=== PATIENT | female | born 1965 | race Caucasian/White ===

== ENCOUNTER 2019-07-08 21:14 | Emergency (ER) | payer MEDICAID ==
[~2019-07-08] VITALS: Ht 170.2 cm; Wt 90.9 kg
[~2019-07-08 21:14] MED LIST: ANUSOL 1%-12.5%1 OIN TP; ATIVAN 0.50.5 MG/TAB PO; ATIVAN2 MG PO; BENADRYL 50MG C50 MG PO; CALTRATE-600 W600 MG PO; CARAFATE 1GM1 G PO; CELEXA; CITALOPRAM HYDR20 MG PO; CLARITIN; CYCLOBENZAPRINE10 MG PO; CYMBALTA 60MG60 MG PO; DIFLUCAN PO; DIOVAN; DIOVAN PO; DIOVAN160 MG PO; ELAVIL100 MG PO; ELAVIL50 MG PO; ELMIRON 10100 MG/CA1 PO; ENJUVIA; FEMIRON20 MG PO; FISH OIL CONC1000 MG PO; FISH OIL1 IU PO; FLEXERIL; FLEXERIL 1010 MG/TAB PO; FOLIC ACID; FOLIC ACID PO; GABAPENTIN; HYTRIN 5MG C5 MG/CAP PO; IBUPROFEN; IBUPROFEN200 M1 PO; IMITREX100 MG PO; IMITREX25 MG PO; IRON; Iron; KEPPRA 500MG500 MG PO; KEPPRA750 MG PO; KLONOPIN 0.5MG0.5 MG PO; KLOR-CON M2020 MEQ PO; LORATADINE5 MG/5 ML PO; LORTAB 5/500 501 TAB PO; LYRICA; METHOTREXA50 MG/2 ML IJ; MS CONTIN 330 MG/TAB PO; MVI; NEPHRO-VITE1 TA1 PO; NEURONTIN300 MG/CAP PO; NORCO 325 MG-51 TAB PO; PERCOCET 325 MG1 TA2 PO; PERCOCET 5/321 UDTAB PO; PHENERGAN W/CO120 ML PO; PHENOBARBITAL; PHENOBARBITAL100 M1 PO; PHENOBARBITAL64.8 MG PO; PLAQUENIL; PLAQUENIL PO; PREDNISONE20 MG PO; PREGABALIN; PREMPRO 0.625/21 TAB PO; PREVACID 30MG30 MG PO; PRILOSEC 20MG20 MG PO; PROCTOSOL-HC; RANITIDINE HYD150 MG PO; ROBAXIN500 MG PO; TOPAMAX 100MG100 M1 PO; TOPAMAX 25MG25 M1; TYLENOL 500MG500 MG PO; ULTRAM 50MG TAB50 MG PO; UNABLE; VICODIN 5/5001 UDTAB PO; VIMPAT PO; XALATAN EYE DROPS OU; ZANTAC; ZANTAC 150150 MG PO; [UNRECOGNIZED DRUG - OTHER]; [UNRECOGNIZED DRUG - OTHER] PO; diavan
[2019-07-08 21:16] VITALS: TEMP 98.6
[2019-07-08] MEDS ORDERED: PHENOBARBITAL32.4 MG PO ×2 (21:34→22:16)
[2019-07-08] MEDS ORDERED: MORPHINE 1515 MG/TAB PO (21:35)
[2019-07-08] MEDS ORDERED: SEROQUEL 200MG200 MG PO (21:35)
[2019-07-08] MEDS ORDERED: NAPROSYN500 MG PO (21:35)
[2019-07-08] MEDS ORDERED: LEVOXYL0.15 MG PO (21:35)
[2019-07-08] MEDS ORDERED: XALATAN EYE DROPS OD (21:36)
[2019-07-08] MEDS ORDERED: TENORMIN 5050 MG/TAB PO (21:36)
[2019-07-08] MEDS ORDERED: TRIAMCINOLONE A15 GM TP (21:36)
[2019-07-08 21:50] LABS: BASO # 0.1 (0.0-0.2); BASO % 0.6 % (0.0-2.0); GRAN # 5.3 (1.4-6.5); GRAN % 62.3 % (42.2-75.2); HEMOGLOBIN 12.4 g/dl (12.5-16.0); LYMPH # 2.4 (1.2-3.4); LYMPH % 27.9 % (20.0-51.0); MEAN CELL VOLUME 89 fl (80.0-100.0); MEAN CORPUSCULAR HEMOGLOBIN 31 pg (27.0-31.0); MEAN CORPUSCULAR HGB CONC 34 g/dl (33.0-37.0); MONO # 0.8 (0.1-0.6); PLATELET COUNT 206 K/mm3 (130-400); RED BLOOD COUNT 4.07 M/mm3 (4.10-5.30); REDCELL DISTRIBUTION WIDTH-CV 15.7 % (11.5-14.5)
[2019-07-08 21:51] LABS: HEMATOCRIT 36.3 % (37.0-47.0)
[2019-07-08 21:59] LABS: ALBUMIN 3.7 gm/dL (3.5-5.0); BILIRUBIN,TOTAL 0.3 mg/dL (0.0-1.0); CALCIUM 8.9 mg/dL (8.4-10.2); CREATININE, serum 0.63 (0.52-1.25); POTASSIUM 4.3 mmol/L (3.4-5.0); TOTAL PROTEIN 6.8 gm/dL (6.4-8.2)
[2019-07-08 22:16] LABS: PROLACTIN 9.3 ng/mL (3.0-18.6)
[2019-07-08 23:20] VITALS: BP 121/73; PULSE 7
== END 2019-07-08 23:34 | disposition home or self-care (01) ==
LOC: COL.ER 21:14
PROVIDERS: Emergency Medicine
DX: G40.909 Epilepsy, unspecified, not intractable, without status epilepticus (principal)
CPT/HCPCS: J2060; J2560

== ENCOUNTER 2019-07-19 15:00 | Emergency (ER) | payer MEDICAID ==
[~2019-07-19] VITALS: Ht 170.2 cm; Wt 79.5 kg
[~2019-07-19 15:00] MED LIST changes: +LEVOXYL0.15 MG PO; +MORPHINE 1515 MG/TAB PO; +NAPROSYN500 MG PO; +PHENOBARBITAL32.4 MG PO; +SEROQUEL 200MG200 MG PO; +TENORMIN 5050 MG/TAB PO; +TRIAMCINOLONE A15 GM TP; +XALATAN EYE DROPS OD
[2019-07-19 15:01] VITALS: TEMP 98.7
[2019-07-19 15:25] LABS: BASO % 0.3 % (0.0-2.0); GRAN # 4.7 (1.4-6.5); GRAN % 78.3 % (42.2-75.2); HEMATOCRIT 40.4 % (37.0-47.0); HEMOGLOBIN 13.5 g/dl (12.5-16.0); MEAN CELL VOLUME 91 fl (80.0-100.0); MEAN CORPUSCULAR HEMOGLOBIN 30 pg (27.0-31.0); MEAN CORPUSCULAR HGB CONC 33 g/dl (33.0-37.0); MEAN PLATELET VOLUME 9.1 fl (7.4-10.4); MONO # 0.2 (0.1-0.6); MONO % 3.9 % (1.7-9.3); PLATELET COUNT 233 K/mm3 (130-400); RED BLOOD COUNT 4.45 M/mm3 (4.10-5.30); REDCELL DISTRIBUTION WIDTH-CV 15.4 % (11.5-14.5)
[2019-07-19 15:31] LABS: ALANINE AMINOTRANSFERASE 11 U/L (9-52); ALBUMIN 4.4 gm/dL (3.5-5.0); ALKALINE PHOSPHATASE 109 U/L (50-136); ANION GAP 14 mmol/L (7-16); AST,SGOT 28 U/L (15-37); BILIRUBIN,TOTAL 0.3 mg/dL (0.0-1.0); BLOOD UREA NITROGEN 8 mg/dL (7-17); CALCIUM 9.4 mg/dL (8.4-10.2); CARBON DIOXIDE 24 mmol/L (22-30); CHLORIDE 96 mmol/L (98-107); GLUCOSE 122 mg/dL (74-106); SODIUM 134 mmol/L (137-145); TOTAL PROTEIN 7.6 gm/dL (6.4-8.2)
[2019-07-19 15:33] LABS: ALCOHOL(ethanol),MEDICAL < 10 mg/dL
[2019-07-19 15:44] LABS: COLLECTION METHOD CLEAN CATCH
[2019-07-19 15:47] LABS: PROLACTIN 13.8 ng/mL (3.0-18.6)
[2019-07-19 15:57] LABS: MUCOUS Present /lpf; PH 7 (5-8); SQUAMOUS EPITHELIAL 0-2 /hpf; URINE APPEARANCE Clear; URINE BACTERIA Moderate /hpf; URINE BILIRUBIN Negative (NEGATIVE); URINE BLOOD 1+ (NEGATIVE); URINE COLOR Straw; URINE GLUCOSE Negative (NEGATIVE); URINE KETONE Negative (NEGATIVE); URINE LEUKOCYTE ESTERASE 2+ (NEGATIVE); URINE NITRATE Negative (NEGATIVE); URINE PROTEIN(semi-quant) Negative (NEGATIVE); URINE UROBILINOGEN Negative (NEGATIVE)
[2019-07-19] MEDS ORDERED: CEPHALEXIN500 M1 PO (19:36)
[2019-07-19 21:54] VITALS: BP 146/93; PULSE 97
[2019-07-20] MEDS ORDERED: SYNTHROID 0.10.15 MG PO (11:54)
[2019-07-20] MEDS ORDERED: CEPHALEXIN500 M1 PO (11:55)
== END 2019-07-19 19:50 | disposition home or self-care (01) ==
LOC: COL.ER 15:00
PROVIDERS: Emergency Medicine
DX: G40.909 Epilepsy, unspecified, not intractable, without status epilepticus (principal); N39.0 Urinary tract infection, site not specified
CPT/HCPCS: A4216; J0696; J2060; J2560; J7030

== ENCOUNTER 2019-07-27 18:01 | Emergency (ER) | payer MEDICAID ==
[~2019-07-27] VITALS: Ht 170.2 cm; Wt 92.7 kg
[~2019-07-27 18:01] MED LIST changes: +CEPHALEXIN500 M1 PO; +SYNTHROID 0.10.15 MG PO
[2019-07-27 18:04] VITALS: TEMP 98.4
[2019-07-27 18:26] LABS: BASO % 0.1 % (0.0-2.0); GRAN # 5.7 (1.4-6.5); HEMATOCRIT 34.7 % (37.0-47.0); HEMOGLOBIN 11.7 g/dl (12.5-16.0); LYMPH # 1.6 (1.2-3.4); LYMPH % 20.5 % (20.0-51.0); MEAN CELL VOLUME 91 fl (80.0-100.0); MEAN CORPUSCULAR HEMOGLOBIN 31 pg (27.0-31.0); MEAN CORPUSCULAR HGB CONC 34 g/dl (33.0-37.0); MEAN PLATELET VOLUME 8.8 fl (7.4-10.4); MONO # 0.6 (0.1-0.6); PLATELET COUNT 234 K/mm3 (130-400); RED BLOOD COUNT 3.82 M/mm3 (4.10-5.30); REDCELL DISTRIBUTION WIDTH-CV 15.6 % (11.5-14.5)
[2019-07-27 18:35] LABS: ALBUMIN 3.8 gm/dL (3.5-5.0); BILIRUBIN,TOTAL 0.3 mg/dL (0.0-1.0); CALCIUM 8.8 mg/dL (8.4-10.2); CREATININE, serum 0.55 (0.52-1.25); POTASSIUM 4.4 mmol/L (3.4-5.0); TOTAL PROTEIN 6.6 gm/dL (6.4-8.2)
[2019-07-27 18:44] LABS: COLLECTION METHOD CLEAN CATCH
[2019-07-27 18:51] LABS: PROLACTIN 21.1 ng/mL (3.0-18.6)
[2019-07-27 18:53] LABS: PH 7 (5-8); SQUAMOUS EPITHELIAL 0-2 /hpf; URINE APPEARANCE Clear; URINE BACTERIA Occasional /hpf; URINE BILIRUBIN Negative (NEGATIVE); URINE BLOOD Negative (NEGATIVE); URINE COLOR Straw; URINE GLUCOSE Negative (NEGATIVE); URINE KETONE Negative (NEGATIVE); URINE LEUKOCYTE ESTERASE Negative (NEGATIVE); URINE NITRATE Negative (NEGATIVE); URINE PROTEIN(semi-quant) Negative (NEGATIVE); URINE RBC 0-2 /hpf; URINE UROBILINOGEN Negative (NEGATIVE)
[2019-07-27 21:05] VITALS: BP 154/119; PULSE 70
== END 2019-07-27 21:08 | disposition home or self-care (01) ==
LOC: COL.ER 18:01
PROVIDERS: Emergency Medicine
DX: G40.909 Epilepsy, unspecified, not intractable, without status epilepticus (principal); E03.9 Hypothyroidism, unspecified; I10 Essential (primary) hypertension; F17.210 Nicotine dependence, cigarettes, uncomplicated; Z90.710 Acquired absence of both cervix and uterus; Z90.49 Acquired absence of other specified parts of digestive tract
CPT/HCPCS: J2060; J7030

== ENCOUNTER 2019-08-31 11:00 | Outpatient (RCR) | payer MEDICAID | END 2019-09-05 13:23 | disposition home or self-care (01) | LOC: WSPT 11:00 | DX: M25.562 Pain in left knee (principal); Z98.890 Other specified postprocedural states ==

== ENCOUNTER 2019-10-02 15:40 | Emergency (ER) | payer MEDICAID ==
[~2019-10-02] VITALS: Ht 170.2 cm; Wt 90.9 kg
[2019-10-02 15:41] VITALS: BP 148/111; TEMP 98.5
[2019-10-02] MEDS ORDERED: SEROQUEL XR200 MG PO (16:07)
[2019-10-02] MEDS ORDERED: KLOR-CON SPRIN10 MEQ PO (16:07)
[2019-10-02] MEDS ORDERED: BRIVIACT100 MG PO (16:08)
[2019-10-02 16:25] LABS: COLLECTION METHOD CLEAN CATCH
[2019-10-02 16:26] LABS: BASO # 0.1 (0.0-0.2); BASO % 0.5 % (0.0-2.0); GRAN # 7.4 (1.4-6.5); GRAN % 70.8 % (42.2-75.2); HEMATOCRIT 37.9 % (37.0-47.0); HEMOGLOBIN 12.5 g/dl (12.5-16.0); LYMPH # 2.2 (1.2-3.4); LYMPH % 21.4 % (20.0-51.0); MEAN CELL VOLUME 94 fl (80.0-100.0); MEAN CORPUSCULAR HEMOGLOBIN 31 pg (27.0-31.0); MEAN CORPUSCULAR HGB CONC 33 g/dl (33.0-37.0); MONO # 0.7 (0.1-0.6); MONO % 6.9 % (1.7-9.3); PLATELET COUNT 217 K/mm3 (130-400); RED BLOOD COUNT 4.04 M/mm3 (4.10-5.30); REDCELL DISTRIBUTION WIDTH-CV 14.5 % (11.5-14.5)
[2019-10-02 16:39] LABS: PH 7 (5-8); SQUAMOUS EPITHELIAL 0-2 /hpf; URINE APPEARANCE Clear; URINE BACTERIA None Seen /hpf; URINE BILIRUBIN Negative (NEGATIVE); URINE BLOOD Negative (NEGATIVE); URINE COLOR Straw; URINE GLUCOSE Negative (NEGATIVE); URINE KETONE Negative (NEGATIVE); URINE LEUKOCYTE ESTERASE Negative (NEGATIVE); URINE NITRATE Negative (NEGATIVE); URINE PROTEIN(semi-quant) Negative (NEGATIVE); URINE RBC 0-2 /hpf; URINE UROBILINOGEN Negative (NEGATIVE)
[2019-10-02 16:50] LABS: ALANINE AMINOTRANSFERASE 15 U/L (9-52); ALBUMIN 3.6 gm/dL (3.5-5.0); ALKALINE PHOSPHATASE 85 U/L (50-136); ANION GAP 6 mmol/L (7-16); AST,SGOT 19 U/L (15-37); BILIRUBIN,TOTAL 0.2 mg/dL (0.0-1.0); BLOOD UREA NITROGEN 10 mg/dL (7-17); C-REACTIVE PROTEIN 0.8 mg/dL (0.0-0.9); CALCIUM 8.8 mg/dL (8.4-10.2); CARBON DIOXIDE 24 mmol/L (22-30); CHLORIDE 102 mmol/L (98-107); CREATININE, serum 0.57 (0.52-1.25); GLUCOSE 98 mg/dL (74-106); POTASSIUM 4.5 mmol/L (3.4-5.0); SODIUM 132 mmol/L (137-145); TOTAL PROTEIN 6.5 gm/dL (6.4-8.2)
[2019-10-02 17:01] LABS: TROPONIN-I < 0.012 ng/mL (0.000-0.035)
[2019-10-02] MEDS ORDERED: ATIVAN 0.50.5 MG/TAB PO (17:50)
[2019-10-02 17:55] VITALS: PULSE 88
== END 2019-10-02 17:55 | disposition home or self-care (01) ==
LOC: COL.ER 15:40
PROVIDERS: Emergency Medicine
DX: G47.00 Insomnia, unspecified (principal); R53.1 Weakness; R25.8 Other abnormal involuntary movements; I10 Essential (primary) hypertension; F17.210 Nicotine dependence, cigarettes, uncomplicated
CPT/HCPCS: J2060; J7030

== ENCOUNTER 2019-10-29 21:37 | Emergency (ER) | payer MEDICAID ==
[~2019-10-29] VITALS: Ht 170.2 cm; Wt 86.4 kg
[~2019-10-29 21:37] MED LIST changes: +BRIVIACT100 MG PO; +KLOR-CON SPRIN10 MEQ PO; +SEROQUEL XR200 MG PO
[2019-10-29 22:13] LABS: BASO # 0.1 (0.0-0.2); BASO % 0.7 % (0.0-2.0); GRAN # 4.3 (1.4-6.5); GRAN % 59.5 % (42.2-75.2); HEMATOCRIT 38.6 % (37.0-47.0); HEMOGLOBIN 12.7 g/dl (12.5-16.0); LYMPH # 2.2 (1.2-3.4); LYMPH % 30.3 % (20.0-51.0); MEAN CELL VOLUME 94 fl (80.0-100.0); MEAN CORPUSCULAR HEMOGLOBIN 31 pg (27.0-31.0); MEAN CORPUSCULAR HGB CONC 33 g/dl (33.0-37.0); MEAN PLATELET VOLUME 8.9 fl (7.4-10.4); MONO # 0.7 (0.1-0.6); MONO % 9.2 % (1.7-9.3); PLATELET COUNT 253 K/mm3 (130-400); RED BLOOD COUNT 4.13 M/mm3 (4.10-5.30); REDCELL DISTRIBUTION WIDTH-CV 14.6 % (11.5-14.5)
[2019-10-29 22:26] LABS: ALBUMIN 3.9 gm/dL (3.5-5.0); BILIRUBIN,TOTAL 0.3 mg/dL (0.0-1.0); C-REACTIVE PROTEIN 0.9 mg/dL (0.0-0.9); CALCIUM 8.8 mg/dL (8.4-10.2); CREATININE, serum 0.62 (0.52-1.25); POTASSIUM 4.4 mmol/L (3.4-5.0); TOTAL PROTEIN 6.9 gm/dL (6.4-8.2)
[2019-10-29 22:40] LABS: PROLACTIN 16.3 ng/mL (3.0-18.6)
[2019-10-29 23:03] LABS: COLLECTION METHOD CLEAN CATCH
[2019-10-29 23:10] LABS: MUCOUS Present /lpf; PH 5 (5-8); URINE APPEARANCE Clear; URINE BACTERIA Rare /hpf; URINE BILIRUBIN Positive (NEGATIVE); URINE BLOOD Negative (NEGATIVE); URINE COLOR Yellow; URINE GLUCOSE Negative (NEGATIVE); URINE KETONE Negative (NEGATIVE); URINE LEUKOCYTE ESTERASE Trace (NEGATIVE); URINE NITRATE Negative (NEGATIVE); URINE PROTEIN(semi-quant) Negative (NEGATIVE); URINE RBC 0-2 /hpf
[2019-10-29] MEDS ORDERED: ATIVAN 0.50.5 MG/TAB PO (23:22)
[2019-10-30 00:10] VITALS: BP 129/77; PULSE 70; TEMP 98.8
== END 2019-10-30 00:10 | disposition home or self-care (01) ==
LOC: COL.ER 21:37
PROVIDERS: Emergency Medicine
DX: G40.909 Epilepsy, unspecified, not intractable, without status epilepticus (principal); I10 Essential (primary) hypertension; E03.9 Hypothyroidism, unspecified; Z90.710 Acquired absence of both cervix and uterus
CPT/HCPCS: J2060; J7030

== ENCOUNTER 2019-11-03 19:55 | Emergency (ER) | payer MEDICAID ==
[~2019-11-03] VITALS: Ht 170.2 cm; Wt 90.0 kg
[2019-11-03 20:19] VITALS: BP 132/68; TEMP 96.8
[2019-11-03 22:31] LABS: STREP SCREEN NEGATIVE
[2019-11-03] MEDS ORDERED: AMOXICILLIN 50500 MG PO (22:44)
[2019-11-03 23:00] VITALS: PULSE 80
== END 2019-11-03 23:00 | disposition home or self-care (01) ==
LOC: COL.ER 19:55
PROVIDERS: Physician Assistant
DX: R59.0 Localized enlarged lymph nodes (principal); G40.909 Epilepsy, unspecified, not intractable, without status epilepticus; M32.9 Systemic lupus erythematosus, unspecified; F17.210 Nicotine dependence, cigarettes, uncomplicated

== ENCOUNTER 2019-11-07 13:30 | Outpatient (RCR) | payer MEDICAID ==
[~2019-11-07 13:30] MED LIST changes: +AMOXICILLIN 50500 MG PO
== END 2019-12-11 16:56 | disposition home or self-care (01) ==
LOC: WSC 13:30
DX: Z96.652 Presence of left artificial knee joint (principal)

== ENCOUNTER 2019-11-29 09:49 | Emergency (ER) | payer MEDICAID ==
[2019-11-29 09:54] VITALS: TEMP 98.3
[2019-11-29 10:32] LABS: BASO % 0.7 % (0.0-2.0); GRAN # 3.8 (1.4-6.5); GRAN % 62.2 % (42.2-75.2); HEMATOCRIT 38.7 % (37.0-47.0); HEMOGLOBIN 12.6 g/dl (12.5-16.0); LYMPH # 1.7 (1.2-3.4); LYMPH % 27.5 % (20.0-51.0); MEAN CELL VOLUME 94 fl (80.0-100.0); MEAN CORPUSCULAR HEMOGLOBIN 31 pg (27.0-31.0); MEAN CORPUSCULAR HGB CONC 33 g/dl (33.0-37.0); MEAN PLATELET VOLUME 9.1 fl (7.4-10.4); MONO # 0.6 (0.1-0.6); MONO % 9.4 % (1.7-9.3); PLATELET COUNT 240 K/mm3 (130-400); RED BLOOD COUNT 4.11 M/mm3 (4.10-5.30); REDCELL DISTRIBUTION WIDTH-CV 14.6 % (11.5-14.5)
[2019-11-29 10:42] LABS: ALBUMIN 3.7 gm/dL (3.5-5.0); BILIRUBIN,TOTAL 0.3 mg/dL (0.0-1.0); CREATININE, serum 0.62 (0.52-1.25); POTASSIUM 4.8 mmol/L (3.4-5.0); TOTAL PROTEIN 6.9 gm/dL (6.4-8.2)
[2019-11-29 10:58] LABS: PROLACTIN 11.8 ng/mL (3.0-18.6)
[2019-11-29 11:02] LABS: COLLECTION METHOD CLEAN CATCH
[2019-11-29 11:33] LABS: PH 6 (5-8); SQUAMOUS EPITHELIAL 0-2 /hpf; URINE APPEARANCE Clear; URINE BACTERIA Rare /hpf; URINE BILIRUBIN Negative (NEGATIVE); URINE BLOOD Negative (NEGATIVE); URINE COLOR Yellow; URINE GLUCOSE Negative (NEGATIVE); URINE KETONE Negative (NEGATIVE); URINE LEUKOCYTE ESTERASE Negative (NEGATIVE); URINE NITRATE Negative (NEGATIVE); URINE PROTEIN(semi-quant) Negative (NEGATIVE); URINE RBC 0-2 /hpf; URINE UROBILINOGEN Negative (NEGATIVE)
[2019-11-29 12:32] VITALS: BP 141/78; PULSE 94
== END 2019-11-29 12:32 | disposition home or self-care (01) ==
LOC: COL.ER 09:49
PROVIDERS: Emergency Medicine
DX: G40.909 Epilepsy, unspecified, not intractable, without status epilepticus (principal); R51 Headache
CPT/HCPCS: J0780; J1885; J2060; J7040

== ENCOUNTER → 2019-12-13 | Outpatient (CLI) | payer MEDICAID | LOC: COL.RAD 09:25 | DX: R59.0 Localized enlarged lymph nodes (principal) ==

== ENCOUNTER 2020-01-21 14:16 | Emergency (ER) | payer MEDICAID ==
[~2020-01-21] VITALS: Ht 170.2 cm; Wt 90.5 kg
[2020-01-21] MEDS ORDERED: IMITREX100 MG PO (14:32)
[2020-01-21 16:53] LABS: BASO % 0.6 % (0.0-2.0); GRAN # 3.8 (1.4-6.5); GRAN % 58.9 % (42.2-75.2); HEMATOCRIT 39.6 % (37.0-47.0); HEMOGLOBIN 12.9 g/dl (12.5-16.0); LYMPH # 2.2 (1.2-3.4); LYMPH % 33.3 % (20.0-51.0); MEAN CELL VOLUME 92 fl (80.0-100.0); MEAN CORPUSCULAR HEMOGLOBIN 30 pg (27.0-31.0); MEAN CORPUSCULAR HGB CONC 33 g/dl (33.0-37.0); MEAN PLATELET VOLUME 9.1 fl (7.4-10.4); MONO # 0.5 (0.1-0.6); PLATELET COUNT 257 K/mm3 (130-400); RED BLOOD COUNT 4.32 M/mm3 (4.10-5.30); REDCELL DISTRIBUTION WIDTH-CV 14.5 % (11.5-14.5)
[2020-01-21 17:10] LABS: ALANINE AMINOTRANSFERASE 19 U/L (9-52); ALKALINE PHOSPHATASE 109 U/L (50-136); ANION GAP 8 mmol/L (7-16); AST,SGOT 19 U/L (15-37); BILIRUBIN,TOTAL 0.2 mg/dL (0.0-1.0); BLOOD UREA NITROGEN 10 mg/dL (7-17); CALCIUM 8.8 mg/dL (8.4-10.2); CARBON DIOXIDE 22 mmol/L (22-30); CHLORIDE 105 mmol/L (98-107); CREATININE, serum 0.54 (0.52-1.25); GLUCOSE 89 mg/dL (74-106); POTASSIUM 4.2 mmol/L (3.4-5.0); SODIUM 135 mmol/L (137-145); TOTAL PROTEIN 7.1 gm/dL (6.4-8.2)
[2020-01-21 17:23] LABS: PROLACTIN 7.1 ng/mL (3.0-18.6)
[2020-01-21 17:25] LABS: C-REACTIVE PROTEIN < 0.5 mg/dL (0.0-0.9)
[2020-01-21 17:27] VITALS: BP 132/78; PULSE 80; TEMP 98
== END 2020-01-21 17:45 | disposition home or self-care (01) ==
LOC: COL.ER 14:16
PROVIDERS: Emergency Medicine
DX: R56.9 Unspecified convulsions (principal); I10 Essential (primary) hypertension; E03.9 Hypothyroidism, unspecified; Z90.89 Acquired absence of other organs; Z90.710 Acquired absence of both cervix and uterus; Z86.69 Personal history of other diseases of the nervous system and sense organs
CPT/HCPCS: J2060; J7030

== ENCOUNTER 2020-01-29 17:22 | Emergency (ER) | payer MEDICAID ==
[~2020-01-29] VITALS: Ht 170.2 cm; Wt 90.3 kg
[2020-01-29 17:27] VITALS: BP 127/76; TEMP 98.6
[2020-01-29 18:46] LABS: BASO # 0.1 (0.0-0.2); BASO % 0.6 % (0.0-2.0); GRAN # 5.3 (1.4-6.5); GRAN % 61.7 % (42.2-75.2); HEMOGLOBIN 10.4 g/dl (12.5-16.0); LYMPH # 2.6 (1.2-3.4); LYMPH % 29.9 % (20.0-51.0); MEAN CELL VOLUME 95 fl (80.0-100.0); MEAN CORPUSCULAR HEMOGLOBIN 30 pg (27.0-31.0); MEAN CORPUSCULAR HGB CONC 32 g/dl (33.0-37.0); MONO # 0.6 (0.1-0.6); MONO % 7.3 % (1.7-9.3); PLATELET COUNT 308 K/mm3 (130-400); RED BLOOD COUNT 3.42 M/mm3 (4.10-5.30); REDCELL DISTRIBUTION WIDTH-CV 15.3 % (11.5-14.5)
[2020-01-29 18:47] LABS: HEMATOCRIT 32.6 % (37.0-47.0)
[2020-01-29 18:52] LABS: INR 0.9 (0.8-3.0)
[2020-01-29 18:55] LABS: PARTIAL THROMBOPLASTIN TIME 35.6 SECONDS (26.0-37.0)
[2020-01-29 18:59] LABS: BILIRUBIN,TOTAL 0.7 mg/dL (0.0-1.0); C-REACTIVE PROTEIN 2.4 mg/dL (0.0-0.9); CALCIUM 9.3 mg/dL (8.4-10.2); CREATININE, serum 0.55 (0.52-1.25); POTASSIUM 4.6 mmol/L (3.4-5.0); TOTAL PROTEIN 7.2 gm/dL (6.4-8.2)
[2020-01-29 20:10] VITALS: PULSE 100
== END 2020-01-29 20:10 | disposition home or self-care (01) ==
LOC: COL.ER 17:22
PROVIDERS: Emergency Medicine
DX: R58 Hemorrhage, not elsewhere classified (principal); F17.210 Nicotine dependence, cigarettes, uncomplicated; G40.909 Epilepsy, unspecified, not intractable, without status epilepticus; Z96.651 Presence of right artificial knee joint

== ENCOUNTER 2020-02-01 13:46 | Outpatient (RCR) | payer MEDICAID ==
[2020-04-04] MEDS ORDERED: MOBIC15 MG PO (14:24)
[2020-04-04] MEDS ORDERED: CEPHALEXIN500 M1 PO (16:49)
== END 2020-05-01 | disposition home or self-care (01) ==
LOC: WSPT
DX: M25.561 Pain in right knee (principal); Z96.651 Presence of right artificial knee joint

== ENCOUNTER 2020-04-04 13:52 | Emergency (ER) | payer MEDICAID ==
[~2020-04-04] VITALS: Ht 170.2 cm; Wt 81.8 kg
[2020-04-04 13:56] VITALS: TEMP 97.3
[2020-04-04] MEDS ORDERED: MOBIC15 MG PO (14:24)
[2020-04-04 14:28] LABS: BASO # 0.1 (0.0-0.2); BASO % 0.5 % (0.0-2.0); GRAN # 6.3 (1.4-6.5); GRAN % 68.4 % (42.2-75.2); HEMATOCRIT 42.8 % (37.0-47.0); HEMOGLOBIN 13.8 g/dl (12.5-16.0); LYMPH # 2.2 (1.2-3.4); LYMPH % 23.8 % (20.0-51.0); MEAN CELL VOLUME 87 fl (80.0-100.0); MEAN CORPUSCULAR HEMOGLOBIN 28 pg (27.0-31.0); MEAN CORPUSCULAR HGB CONC 32 g/dl (33.0-37.0); MEAN PLATELET VOLUME 9.1 fl (7.4-10.4); MONO # 0.7 (0.1-0.6); MONO % 7.1 % (1.7-9.3); PLATELET COUNT 349 K/mm3 (130-400); RED BLOOD COUNT 4.92 M/mm3 (4.10-5.30); REDCELL DISTRIBUTION WIDTH-CV 15.1 % (11.5-14.5)
[2020-04-04 14:43] LABS: ALANINE AMINOTRANSFERASE 17 U/L (4-34); ALBUMIN 4.5 gm/dL (3.5-5.0); ALKALINE PHOSPHATASE 122 U/L (50-136); ANION GAP 7 mmol/L (7-16); AST,SGOT 22 U/L (15-37); BILIRUBIN,TOTAL 0.3 mg/dL (0.0-1.0); BLOOD UREA NITROGEN 11 mg/dL (7-17); CALCIUM 9.8 mg/dL (8.4-10.2); CARBON DIOXIDE 26 mmol/L (22-30); CHLORIDE 98 mmol/L (98-107); CREATININE, serum 0.62 (0.52-1.25); GLUCOSE 102 mg/dL (74-106); POTASSIUM 4.4 mmol/L (3.4-5.0); SODIUM 131 mmol/L (137-145); TOTAL PROTEIN 7.9 gm/dL (6.4-8.2)
[2020-04-04 14:55] LABS: COLLECTION METHOD CLEAN CATCH
[2020-04-04 14:57] LABS: PROLACTIN 13.3 ng/mL (3.0-18.6)
[2020-04-04 15:01] LABS: TROPONIN-I < 0.012 ng/mL (0.000-0.035)
[2020-04-04 15:03] LABS: MUCOUS Present /lpf; PH 7 (5-8); SQUAMOUS EPITHELIAL 0-2 /hpf; URINE APPEARANCE Clear; URINE BACTERIA Occasional /hpf; URINE BILIRUBIN Negative (NEGATIVE); URINE BLOOD Negative (NEGATIVE); URINE COLOR Straw; URINE GLUCOSE Negative (NEGATIVE); URINE KETONE Negative (NEGATIVE); URINE LEUKOCYTE ESTERASE 1+ (NEGATIVE); URINE NITRATE Negative (NEGATIVE); URINE PROTEIN(semi-quant) Negative (NEGATIVE); URINE RBC 0-2 /hpf; URINE UROBILINOGEN Negative (NEGATIVE)
[2020-04-04] MEDS ORDERED: CEPHALEXIN500 M1 PO (16:49)
[2020-04-04 18:11] VITALS: BP 154/88; PULSE 81
== END 2020-04-04 18:10 | disposition home or self-care (01) ==
LOC: COL.ER 13:52
PROVIDERS: Emergency Medicine
DX: G40.909 Epilepsy, unspecified, not intractable, without status epilepticus (principal); R07.89 Other chest pain; N39.0 Urinary tract infection, site not specified; F17.210 Nicotine dependence, cigarettes, uncomplicated
CPT/HCPCS: J2060; J7030

== ENCOUNTER 2020-05-20 14:34 | Emergency (ER) | payer MEDICAID ==
[~2020-05-20] VITALS: Ht 170.2 cm; Wt 85.5 kg
[~2020-05-20 14:34] MED LIST changes: +MOBIC15 MG PO
[2020-05-20 14:39] VITALS: BP 153/83; TEMP 98.3
[2020-05-20] MEDS ORDERED: NORCO 325 MG-51 TAB PO (15:15)
[2020-05-20 15:26] LABS: MEAN CELL VOLUME 84 fl (80.0-100.0); MEAN CORPUSCULAR HEMOGLOBIN 28 pg (27.0-31.0); MEAN CORPUSCULAR HGB CONC 33 g/dl (33.0-37.0); MEAN PLATELET VOLUME 9.3 fl (7.4-10.4); PLATELET COUNT 252 K/mm3 (130-400); RED BLOOD COUNT 4.36 M/mm3 (4.10-5.30); REDCELL DISTRIBUTION WIDTH-CV 16.3 % (11.5-14.5)
[2020-05-20 15:28] LABS: HEMATOCRIT 36.4 % (37.0-47.0)
[2020-05-20 15:31] LABS: PROTHROMBIN TIME 11.4 SECONDS (9.7-12.8)
[2020-05-20 15:52] VITALS: PULSE 90
== END 2020-05-20 15:52 | disposition home or self-care (01) ==
LOC: COL.ER 14:34
PROVIDERS: Physician Assistant
DX: S70.12XA Contusion of left thigh, initial encounter (principal); G40.909 Epilepsy, unspecified, not intractable, without status epilepticus; W22.8XXA Striking against or struck by other objects, initial encounter; Y92.000 Kitchen of unspecified non-institutional (private) residence as the place of occurrence of the external cause

== ENCOUNTER 2020-06-15 15:38 | Emergency (ER) | payer MEDICAID ==
[~2020-06-15] VITALS: Ht 170.2 cm; Wt 83.6 kg
[2020-06-15 15:39] VITALS: TEMP 98.7
[2020-06-15 16:19] LABS: COLLECTION METHOD CLEAN CATCH
[2020-06-15 16:22] LABS: HEMATOCRIT 38.6 % (37.0-47.0); HEMOGLOBIN 12.5 g/dl (12.5-16.0); MEAN CELL VOLUME 85 fl (80.0-100.0); MEAN CORPUSCULAR HEMOGLOBIN 28 pg (27.0-31.0); MEAN CORPUSCULAR HGB CONC 32 g/dl (33.0-37.0); MEAN PLATELET VOLUME 8.8 fl (7.4-10.4); PLATELET COUNT 262 K/mm3 (130-400); RED BLOOD COUNT 4.54 M/mm3 (4.10-5.30); REDCELL DISTRIBUTION WIDTH-CV 17.9 % (11.5-14.5)
[2020-06-15 16:26] LABS: PH 7 (5-8); SQUAMOUS EPITHELIAL 0-2 /hpf; URINE APPEARANCE Clear; URINE BACTERIA None Seen /hpf; URINE BILIRUBIN Negative (NEGATIVE); URINE BLOOD Negative (NEGATIVE); URINE COLOR Straw; URINE GLUCOSE Negative (NEGATIVE); URINE KETONE Negative (NEGATIVE); URINE LEUKOCYTE ESTERASE Negative (NEGATIVE); URINE NITRATE Negative (NEGATIVE); URINE PROTEIN(semi-quant) Negative (NEGATIVE); URINE RBC 0-2 /hpf; URINE UROBILINOGEN Negative (NEGATIVE)
[2020-06-15 16:34] LABS: ALANINE AMINOTRANSFERASE 16 U/L (4-34); ALBUMIN 4.3 gm/dL (3.5-5.0); ALKALINE PHOSPHATASE 101 U/L (50-136); ANION GAP 8 mmol/L (7-16); AST,SGOT 24 U/L (15-37); BILIRUBIN,TOTAL 0.4 mg/dL (0.0-1.0); BLOOD UREA NITROGEN 8 mg/dL (7-17); C-REACTIVE PROTEIN 0.6 mg/dL (0.0-0.9); CALCIUM 9.5 mg/dL (8.4-10.2); CARBON DIOXIDE 23 mmol/L (22-30); CHLORIDE 97 mmol/L (98-107); CREATININE, serum 0.55 (0.52-1.25); GLUCOSE 101 mg/dL (74-106); LIPASE 122 U/L (23-300); POTASSIUM 4.5 mmol/L (3.4-5.0); SODIUM 128 mmol/L (137-145); TOTAL PROTEIN 7.6 gm/dL (6.4-8.2)
[2020-06-15 16:43] LABS: TROPONIN-I < 0.012 ng/mL (0.000-0.035)
[2020-06-15 16:50] LABS: ANISOCYTOSIS 2+; LYMPHOCYTE 42 % (20.0-51.0); NEUTROPHILS 47 % (42.0-75.2); PLATELET ESTIMATE NORMAL (NORMAL)
[2020-06-15] MEDS ORDERED: PROTONIX 40MG T40 MG PO (17:49)
[2020-06-15 18:02] VITALS: BP 138/82; PULSE 81
== END 2020-06-15 18:02 | disposition home or self-care (01) ==
LOC: COL.ER 15:38
PROVIDERS: Emergency Medicine
DX: R10.11 Right upper quadrant pain (principal); R10.13 Epigastric pain; R10.12 Left upper quadrant pain; N28.89 Other specified disorders of kidney and ureter; I10 Essential (primary) hypertension; F17.210 Nicotine dependence, cigarettes, uncomplicated; Z79.890 Hormone replacement therapy
CPT/HCPCS: J1170; J2405; J7030; Q9967

== ENCOUNTER → 2020-06-18 | Outpatient (CLI) | payer MEDICAID ==
[~2020-06-18] MED LIST changes: +PROTONIX 40MG T40 MG PO
== END ==
LOC: COL.RAD 14:03
DX: S70.02XA Contusion of left hip, initial encounter (principal)

== ENCOUNTER → 2020-06-25 | Outpatient (CLI) | payer MEDICAID | LOC: COL.RAD 06-24 08:15 | DX: N28.89 Other specified disorders of kidney and ureter (principal) ==

== ENCOUNTER 2020-07-18 20:15 | Emergency (ER) | payer MEDICAID ==
[~2020-07-18] VITALS: Ht 167.6 cm; Wt 72.0 kg
[2020-07-18 20:42] LABS: HEMATOCRIT 38.8 % (37.0-47.0); HEMOGLOBIN 12.5 g/dl (12.5-16.0); MEAN CELL VOLUME 88 fl (80.0-100.0); MEAN CORPUSCULAR HEMOGLOBIN 29 pg (27.0-31.0); MEAN CORPUSCULAR HGB CONC 32 g/dl (33.0-37.0); PLATELET COUNT 257 K/mm3 (130-400); RED BLOOD COUNT 4.39 M/mm3 (4.10-5.30); REDCELL DISTRIBUTION WIDTH-CV 15.4 % (11.5-14.5)
[2020-07-18 20:52] LABS: ALANINE AMINOTRANSFERASE 15 U/L (4-34); ALBUMIN 4.1 gm/dL (3.5-5.0); ALKALINE PHOSPHATASE 90 U/L (50-136); ANION GAP 8 mmol/L (7-16); AST,SGOT 25 U/L (15-37); BILIRUBIN,TOTAL 0.3 mg/dL (0.0-1.0); BLOOD UREA NITROGEN 9 mg/dL (7-17); C-REACTIVE PROTEIN 0.7 mg/dL (0.0-0.9); CALCIUM 9.1 mg/dL (8.4-10.2); CARBON DIOXIDE 25 mmol/L (22-30); CHLORIDE 98 mmol/L (98-107); CREATININE, serum 0.57 (0.52-1.25); GLUCOSE 93 mg/dL (74-106); LIPASE 132 U/L (23-300); SODIUM 131 mmol/L (137-145); TOTAL PROTEIN 7.3 gm/dL (6.4-8.2)
[2020-07-18 21:06] LABS: TROPONIN-I < 0.012 ng/mL (0.000-0.035)
[2020-07-18] MEDS ORDERED: PROTONIX 40MG T40 MG PO (21:13)
[2020-07-18] MEDS ORDERED: NORCO 325 MG-51 TAB PO (21:13)
[2020-07-18] MEDS ORDERED: CARAFATE 1GM1 G PO (21:13)
[2020-07-18 21:22] LABS: BAND 4 % (0-10); BASOPHIL 1 % (0-2); NEUTROPHILS 27 % (42.0-75.2)
[2020-07-18 21:23] LABS: PLATELET ESTIMATE NORMAL (NORMAL)
[2020-07-18 21:24] LABS: ANISOCYTOSIS 1+; HYPOCHROMIA 1+; LYMPHOCYTE 60 % (20.0-51.0)
[2020-07-18 21:41] LABS: COLLECTION METHOD CLEAN CATCH
[2020-07-18 21:52] LABS: PH 7 (5-8); SQUAMOUS EPITHELIAL None Seen /hpf; URINE APPEARANCE Clear; URINE BACTERIA Rare /hpf; URINE BILIRUBIN Negative (NEGATIVE); URINE BLOOD Negative (NEGATIVE); URINE COLOR Straw; URINE GLUCOSE Negative (NEGATIVE); URINE KETONE Negative (NEGATIVE); URINE LEUKOCYTE ESTERASE Negative (NEGATIVE); URINE NITRATE Negative (NEGATIVE); URINE PROTEIN(semi-quant) Negative (NEGATIVE); URINE RBC 0-2 /hpf; URINE UROBILINOGEN Negative (NEGATIVE)
[2020-07-18 22:19] VITALS: BP 146/74; PULSE 78; TEMP 98.7
== END 2020-07-18 22:15 | disposition home or self-care (01) ==
LOC: COL.ER 20:15
PROVIDERS: Emergency Medicine
DX: R10.13 Epigastric pain (principal); K21.9 Gastro-esophageal reflux disease without esophagitis; G40.909 Epilepsy, unspecified, not intractable, without status epilepticus; F17.210 Nicotine dependence, cigarettes, uncomplicated; Z90.710 Acquired absence of both cervix and uterus; Z79.890 Hormone replacement therapy
CPT/HCPCS: C9113; J1170

== ENCOUNTER → 2020-09-21 | Emergency (ER) | payer MEDICAID ==
[~2020-09-21] VITALS: Ht 170.2 cm; Wt 79.5 kg
[2020-09-21 11:37] VITALS: TEMP 99.6
[2020-09-21 12:09] LABS: COLLECTION METHOD CLEAN CATCH
[2020-09-21 12:14] LABS: PH 7 (5-8); SQUAMOUS EPITHELIAL 0-2 /hpf; URINE APPEARANCE Clear; URINE BACTERIA None Seen /hpf; URINE BILIRUBIN Negative (NEGATIVE); URINE BLOOD Negative (NEGATIVE); URINE COLOR Straw; URINE GLUCOSE Negative (NEGATIVE); URINE KETONE Negative (NEGATIVE); URINE LEUKOCYTE ESTERASE Negative (NEGATIVE); URINE NITRATE Negative (NEGATIVE); URINE PROTEIN(semi-quant) Negative (NEGATIVE); URINE RBC None Seen /hpf; URINE UROBILINOGEN Negative (NEGATIVE)
[2020-09-21 12:20] LABS: BASO # 0.1 (0.0-0.2); BASO % 0.9 % (0.0-2.0); GRAN # 3.9 (1.4-6.5); HEMATOCRIT 40.2 % (37.0-47.0); HEMOGLOBIN 13.2 g/dl (12.5-16.0); LYMPH # 2.4 (1.2-3.4); LYMPH % 34.7 % (20.0-51.0); MEAN CELL VOLUME 89 fl (80.0-100.0); MEAN CORPUSCULAR HEMOGLOBIN 29 pg (27.0-31.0); MEAN CORPUSCULAR HGB CONC 33 g/dl (33.0-37.0); MONO # 0.6 (0.1-0.6); PLATELET COUNT 284 K/mm3 (130-400); RED BLOOD COUNT 4.54 M/mm3 (4.10-5.30); REDCELL DISTRIBUTION WIDTH-CV 14.9 % (11.5-14.5)
[2020-09-21 12:21] LABS: PROTHROMBIN TIME 11.3 SECONDS (9.7-12.8)
[2020-09-21 12:23] LABS: PARTIAL THROMBOPLASTIN TIME 37.7 SECONDS (26.0-37.0)
[2020-09-21 12:26] LABS: ALANINE AMINOTRANSFERASE 14 U/L (4-34); ALBUMIN 4.4 gm/dL (3.5-5.0); ALKALINE PHOSPHATASE 98 U/L (50-136); ANION GAP 8 mmol/L (7-16); AST,SGOT 21 U/L (15-37); BILIRUBIN,TOTAL 0.3 mg/dL (0.0-1.0); BLOOD UREA NITROGEN 13 mg/dL (7-17); CALCIUM 9.2 mg/dL (8.4-10.2); CARBON DIOXIDE 24 mmol/L (22-30); CHLORIDE 100 mmol/L (98-107); CREATININE, serum 0.66 (0.52-1.25); GLUCOSE 99 mg/dL (74-106); POTASSIUM 4.5 mmol/L (3.4-5.0); SODIUM 132 mmol/L (137-145); TOTAL PROTEIN 7.7 gm/dL (6.4-8.2)
[2020-09-21 12:43] LABS: TROPONIN-I < 0.012 ng/mL (0.000-0.035)
[2020-09-21 15:02] VITALS: BP 143/74; PULSE 74
== END ==
LOC: COL.ER 11:36
PROVIDERS: Family Medicine
DX: G40.909 Epilepsy, unspecified, not intractable, without status epilepticus (principal); G43.909 Migraine, unspecified, not intractable, without status migrainosus; R07.9 Chest pain, unspecified; M25.511 Pain in right shoulder; Z90.710 Acquired absence of both cervix and uterus; Z88.8 Allergy status to other drugs, medicaments and biological substances
CPT/HCPCS: J0780; J1100; J1885; J2270; J2550; J7030

== ENCOUNTER 2020-12-27 12:45 | Emergency (ER) | payer MEDICAID ==
[~2020-12-27] VITALS: Ht 170.2 cm; Wt 85.5 kg
[2020-12-27 12:53] VITALS: TEMP 98.7
[2020-12-27 13:46] LABS: BASO % 0.5 % (0.0-2.0); GRAN # 5.4 (1.4-6.5); HEMOGLOBIN 10.5 g/dl (12.5-16.0); LYMPH # 2.2 (1.2-3.4); LYMPH % 25.9 % (20.0-51.0); MEAN CELL VOLUME 90 fl (80.0-100.0); MEAN CORPUSCULAR HEMOGLOBIN 31 pg (27.0-31.0); MEAN CORPUSCULAR HGB CONC 34 g/dl (33.0-37.0); MEAN PLATELET VOLUME 9.6 fl (7.4-10.4); MONO # 0.8 (0.1-0.6); MONO % 9.4 % (1.7-9.3); PLATELET COUNT 251 K/mm3 (130-400); RED BLOOD COUNT 3.43 M/mm3 (4.10-5.30); REDCELL DISTRIBUTION WIDTH-CV 13.7 % (11.5-14.5)
[2020-12-27 13:47] LABS: HEMATOCRIT 30.7 % (37.0-47.0)
[2020-12-27 13:58] LABS: ALBUMIN 3.5 gm/dL (3.5-5.0); BILIRUBIN,TOTAL 0.5 mg/dL (0.0-1.0); CALCIUM 8.2 mg/dL (8.4-10.2); CREATININE, serum 0.46 (0.52-1.25); POTASSIUM 3.7 mmol/L (3.4-5.0); TOTAL PROTEIN 6.4 gm/dL (6.4-8.2)
[2020-12-27 15:30] VITALS: BP 130/77; PULSE 85
== END 2020-12-27 15:30 | disposition home or self-care (01) ==
LOC: COL.ER 12:45
PROVIDERS: Nurse Practitioner
DX: G89.18 Other acute postprocedural pain (principal); M79.7 Fibromyalgia; E87.1 Hypo-osmolality and hyponatremia; G40.909 Epilepsy, unspecified, not intractable, without status epilepticus; I10 Essential (primary) hypertension; E07.9 Disorder of thyroid, unspecified; F17.210 Nicotine dependence, cigarettes, uncomplicated; Z88.8 Allergy status to other drugs, medicaments and biological substances
CPT/HCPCS: J1170; J2270; J2405; J7030

== ENCOUNTER 2023-09-16 09:23 | Day surgery (SDC) | payer MEDICAID ==
[~2023-09-16] VITALS: Ht 172.7 cm; Wt 89.2 kg
[2023-09-16] MEDS ORDERED: PHENOBARBITAL60 MG PO (10:38)
[2023-09-16] MEDS ORDERED: VIMPAT200 MG PO (10:38)
[2023-09-16] MEDS ORDERED: AMBIEN 10MG10 MG PO (10:39)
[2023-09-16] MEDS ORDERED: PERCOCET 325 MG1 TA2 PO (10:39)
[2023-09-16] MEDS ORDERED: ZOLOFT 100MG100 MG PO (10:57)
[2023-09-16] MEDS ORDERED: XCOPRI100 MG PO (10:57)
[2023-09-16] MEDS ORDERED: ANTIVERT 25MG25 MG PO (10:58)
[2023-09-16] MEDS ORDERED: TIROSINT100 MC1 PO (11:00)
[2023-09-16] MEDS ORDERED: MAXALT10 MG PO (11:01)
[2023-09-16 11:07] VITALS: BP 170/94; PULSE 68; TEMP 96.8
[2023-09-16 12:15] VITALS: BP 169/97; PULSE 66; TEMP 97
--- NOTE | 2023-09-16 12:15 | NUR ---
PATIENT AMBULATED TO CHAIR WITH STEADY GAIT, ALERT AND ORIENTED X3. ASSISTED PATIENT IN CHANGING OUT OF DIRTY GOWN. BRIEFS IN PLACE. DENIES PAIN, NAUSEA AND SHORTNESS OF BREATH. BREATHING REGULAR AND UNLABORED ON ROOM AIR. SKIN WARM AND DRY. NURSE HANDOFF COMPLETED IN ROOM. PATIENT HAD WATER AND APPLESAUCE. BOTH FOOD AND DRINK TOLERATED WELL. CALL LIGHT IN REACH.
[2023-09-16 12:30] VITALS: BP 171/89; PULSE 61
[2023-09-16 12:38] VITALS: BP 172/86; PULSE 65
--- NOTE | 2023-09-16 13:00 | NUR ---
1245: DISCHARGE TEACHING COMPLETED WITH PRINTED EDUCATION AND INSTRUCTIONS SENT HOME WITH PATIENT. PATIENT VERBALIZED UNDERSTANDING OF TEACHING. DENIES PAIN, NAUSEA AND SHORTNESS OF BREATH. IV REMOVED. GAUZE AND COBAN PLACED OVER SITE. 1258: MET WITH PATIENT TO DISCUSS PROCEDURE. PATIENT DISCHARGED HOME WITH PETER FROM [facility].
== END 2023-09-16 13:00 | disposition home or self-care (01) ==
LOC: SDCO 09:23
DX: D12.0 Benign neoplasm of cecum (principal); K62.1 Rectal polyp; K64.1 Second degree hemorrhoids; R19.7 Diarrhea, unspecified; I10 Essential (primary) hypertension; F17.210 Nicotine dependence, cigarettes, uncomplicated; Z79.899 Other long term (current) drug therapy
CPT/HCPCS: J2704; J7120